=== PATIENT | male | born 1955 | race Caucasian/White ===

== ENCOUNTER 2024-10-18 14:01 | Outpatient (CLI) | payer MEDICARE, MEDICAID ==
[~2024-10-18] VITALS: Ht 182.9 cm; Wt 77.1 kg
[2024-10-18] MEDS: albuterol 2.5 MG/3 ML nebule NEB ONE (14:43)
[2024-10-18 14:44] VITALS: PULSE 76; RESP 18; O2SAT 95
[2024-10-18 14:56] VITALS: PULSE 77; RESP 18
== END 2024-10-18 23:59 | disposition home or self-care (01) ==
LOC: RT 14:01 → EDSEX 14:30 → RT 23:59
PROVIDERS: ATTEND Nurse Practitioner Family
DX: J44.9 Chronic obstructive pulmonary disease, unspecified (principal)
CPT/HCPCS: 94060; 94760; A4620